=== PATIENT | female | born 1955 | race Caucasian/White ===

== ENCOUNTER 2017-10-26 07:36 | Outpatient (CLI) | payer OTHER | END 2017-10-26 08:01 | disposition home or self-care (01) | LOC: LAB 07:36 | DX: I10 Essential (primary) hypertension (principal); E03.9 Hypothyroidism, unspecified; E78.2 Mixed hyperlipidemia; E06.3 Autoimmune thyroiditis; E08.65 Diabetes mellitus due to underlying condition with hyperglycemia; E03.8 Other specified hypothyroidism; D69.3 Immune thrombocytopenic purpura; D51.1 Vitamin B12 deficiency anemia due to selective vitamin B12 malabsorption with proteinuria; D50.8 Other iron deficiency anemias; D51.8 Other vitamin B12 deficiency anemias; K90.89 Other intestinal malabsorption; Z80.52 Family history of malignant neoplasm of bladder ==

== ENCOUNTER 2018-02-15 07:20 | Outpatient (CLI) | payer OTHER | END 2018-02-15 07:37 | disposition home or self-care (01) | LOC: LAB 07:20 | DX: I10 Essential (primary) hypertension (principal); E11.9 Type 2 diabetes mellitus without complications; E03.8 Other specified hypothyroidism; E78.2 Mixed hyperlipidemia; Z80.52 Family history of malignant neoplasm of bladder; D69.3 Immune thrombocytopenic purpura; D51.1 Vitamin B12 deficiency anemia due to selective vitamin B12 malabsorption with proteinuria; D51.3 Other dietary vitamin B12 deficiency anemia; E06.3 Autoimmune thyroiditis; E08.65 Diabetes mellitus due to underlying condition with hyperglycemia; D50.8 Other iron deficiency anemias; D51.8 Other vitamin B12 deficiency anemias; E55.9 Vitamin D deficiency, unspecified; K90.89 Other intestinal malabsorption ==

== ENCOUNTER 2018-08-28 09:24 | Outpatient (CLI) | payer OTHER | END 2018-08-28 09:57 | disposition home or self-care (01) | LOC: LAB 09:24 | DX: I10 Essential (primary) hypertension (principal); E11.9 Type 2 diabetes mellitus without complications; E78.2 Mixed hyperlipidemia; E13.9 Other specified diabetes mellitus without complications; Z80.52 Family history of malignant neoplasm of bladder; D69.3 Immune thrombocytopenic purpura; D51.1 Vitamin B12 deficiency anemia due to selective vitamin B12 malabsorption with proteinuria; D51.3 Other dietary vitamin B12 deficiency anemia; E06.3 Autoimmune thyroiditis; E08.65 Diabetes mellitus due to underlying condition with hyperglycemia; D50.8 Other iron deficiency anemias; D51.8 Other vitamin B12 deficiency anemias; K90.89 Other intestinal malabsorption; E03.8 Other specified hypothyroidism ==

== ENCOUNTER 2018-08-30 13:26 | Outpatient (CLI) | payer OTHER | END 2018-08-30 13:38 | disposition home or self-care (01) | LOC: RAD 501 13:26 | DX: M25.562 Pain in left knee (principal) ==

== ENCOUNTER 2018-12-29 09:44 | Day surgery (SDC) | payer OTHER ==
[~2018-12-29 09:44] MED LIST: COZAAR50 MG PO; FORTAMET1000 MG PO; OSTERA TABLET1 EACH PO; SYNTHROID88 MCG PO
== END 2018-12-29 18:15 | disposition home or self-care (01) ==
LOC: CIR.AMB 09:44
DX: M23.322 Other meniscus derangements, posterior horn of medial meniscus, left knee (principal); M12.262 Villonodular synovitis (pigmented), left knee; M22.42 Chondromalacia patellae, left knee; M22.12 Recurrent subluxation of patella, left knee

== ENCOUNTER 2019-04-11 08:39 | Outpatient (CLI) | payer OTHER | END 2019-04-11 15:00 | disposition home or self-care (01) | LOC: LAB 08:39 | DX: E03.8 Other specified hypothyroidism (principal); I10 Essential (primary) hypertension; E78.2 Mixed hyperlipidemia; D69.3 Immune thrombocytopenic purpura; Z80.52 Family history of malignant neoplasm of bladder; D51.1 Vitamin B12 deficiency anemia due to selective vitamin B12 malabsorption with proteinuria; D51.3 Other dietary vitamin B12 deficiency anemia; E06.3 Autoimmune thyroiditis; E08.65 Diabetes mellitus due to underlying condition with hyperglycemia; D50.8 Other iron deficiency anemias; D51.8 Other vitamin B12 deficiency anemias; K90.89 Other intestinal malabsorption; D63.1 Anemia in chronic kidney disease ==

== ENCOUNTER → 2020-12-08 | Outpatient (CLI) | payer OTHER | END | disposition home or self-care (01) | LOC: RAD 12:45 | PROVIDERS: ATTEND Physical Medicine & Rehabilitation | DX: M54.5 Low back pain (principal) ==

== ENCOUNTER 2023-11-16 13:45 | Outpatient (CLI) | payer OTHER | END 2023-11-16 14:07 | disposition home or self-care (01) | LOC: MRI 13:45 | DX: M51.36 Other intervertebral disc degeneration, lumbar region (principal); M48.061 Spinal stenosis, lumbar region without neurogenic claudication; M54.12 Radiculopathy, cervical region; M50.222 Other cervical disc displacement at C5-C6 level; M17.11 Unilateral primary osteoarthritis, right knee; M17.12 Unilateral primary osteoarthritis, left knee | CPT/HCPCS: 72141; 72148 ==